=== PATIENT | male | born 1935 | race Caucasian/White ===

== ENCOUNTER 2019-02-05 17:05 | Inpatient (IN) | payer MEDICARE | END 2019-03-08 11:30 | disposition home health service (06) | LOC: MED SURG 17:05 ==

== ENCOUNTER 2020-01-20 22:01 | Inpatient (IN) | payer MEDICARE ==
[2020-01-20] MEDS ORDERED: DUONEB 0.5-3 MG/3 ml Neb IH ONE (22:23)
[2020-01-20] MEDS ORDERED: VENTOLIN COMMON CANISTER IH STA (22:45)
[2020-01-20 22:57] LABS: Absolute Neutrophil Ct (ANC) 11.58 (1.4-6.9); BASOPHIL % 0.3 % (0.0-0.4); Basophil (Absolute #) 0.04 (0-0.4); Eosinophil % 0.4 % (0.00-5.0); Eosinophil (Absolute #) 0.05 (0-0.5); Hematocrit 41.9 % (42-50); Hemoglobin 14.1 gm/dl (12.5-18.0); Lymphocyte (Absolute #) 0.22 (1.0-4.6); Lymphocytes % 1.8 % (24.0-44.0); Mean Corpuscular Hgb Concent. 33.7 g/dl (32-36); Mean Platelet Volume 9.5 fl (7.5-11.0); Monocyte (Absolute #) 0.66 (0.0-1.3); Monocytes % 5.3 % (0.0-12.0); Neutrophil % 92.2 % (36.0-66.0); Platelet Count 305 K/mm3 (150-450); Red Blood Count 4.41 M/mm3 (4.1-5.6); Red Cell Distribution Width 15.9 % (11.5-14.0); White Blood Count 12.6 K/mm3 (4.0-10.5)
[2020-01-20 23:01] LABS: INR 1.05 (0.8-3.0); PROTIME 11.9 SECONDS (8.83-12.87)
[2020-01-20 23:04] LABS: PTT 28.6 SECONDS (24.1-36.1)
[2020-01-20 23:06] LABS: ALBUMIN 4.1 g/dL (3.5-5.0); ANION GAP 10.2 MEQ/L (5-15); BILIRUBIN,TOTAL 0.5 mg/dL (0.2-1.3); Calcium 9.1 mg/dL (8.4-10.2); Creatinine 1 1.42 mg/dL (0.66-1.25); Potassium 4.1 mmol/L (3.5-5.1); Total Protein 7.3 g/dL (6.3-8.2)
[2020-01-20 23:13] LABS: Slide Review 1 YES
[2020-01-20 23:17] LABS: NT PRO BNP 224 pg/mL (0-1800)
[2020-01-20 23:23] LABS: TROPONIN < 0.012 ng/mL (0.000-0.034)
--- NOTE | 2020-01-20 23:32 | ERPHSYRPT ---
- History of Present Illness Time Seen by Provider: 01/20/20 22:21 Source: patient Exam Limitations: no limitations Patient Subjective Stated Complaint: pt states his home health care nurse told him his heart rate was high and his daughter called the ambulance for him. states his breathing is normal for him with accessory muscle use and he does not c/o shortness of breath at this time. Triage Nursing Assessment: pt alert and oriented, answers questions approp. pt arrive per ambulance, transfers to [facility] with assist of 3. pt with accessory muscle use- states is normal for him. exp wheezes noted bilat. skin warm and dry. Physician History: 84 yo wm w 3L O2 dep COPD presents w tachycardia x 7 hours. Pt denies chest pain /increased dyspnea/cough/fever/N/V/D/melena/hemnatochezia. Timing/Duration: other (7hrs) Activities at Onset: rest Severity of Dyspnea-Max: moderate Severity of Dyspnea-Current: moderate Possible Cause: frequent episodes Modifying Factors: Improves With: activity Associated Symptoms: constant, No chest pain/discomfort, No edema, No fever, No lightheadedness, No ankle swelling, No chills, No hemoptysis, No calf pain, No lightheadedness, No leg swelling, No muscle spasms hands, No painful breathing, No productive cough, No sweating, No tightness, No tingling face, No tingling hands Allergies/Adverse Reactions: Tetracyclines Allergy (Verified 01/20/20 22:34) Home Medications: Albuterol 2.5 mg/0.5 ml [PROVENTIL Solution 2.5 MG/0.5 ML] 2.5 mg IH QID 02/05/19 [History] Amlodipine Bes/Olmesartan Med [Artem 5-40 mg Tablet] 1 each PO DAILY 02/05/19 [ History] Cholecalciferol (Vitamin D3) [Vitamin D3] 125 unit PO DAILY 02/05/19 [History] Fluticasone/Salmeterol [Advair 250-50 Diskus] 1 each IH DAILY 02/05/19 [History] Multivitamin W-Minerals/Lutein [Centrum Silver Tablet] 1 each PO DAILY 02/05/19 [History] Primidone 50 MG [Mysoline 50Mg] 250 mg PO BID 02/05/19 [History] Tamsulosin HCl 0.4 mg [Flomax 0.4 MG] 0.4 mg PO DAILY 02/05/19 [History] Atorvastatin Calcium 10 mg PO DAILY 01/20/20 [History] Cetirizine HCl [Zyrtec] 10 mg PO DAILY PRN PRN 01/20/20 [History] Cyanocobalamin (Vitamin B-12) [Vitamin B12] 5,000 mcg PO DAILY 01/20/20 [History ] Donepezil HCl [Aricept] 5 mg PO DAILY 01/20/20 [History] Glycopyrrolate/Formoterol Fum [Bevespi Aerosphere Inhaler] 1 inh IH BID [History] Lipase/Protease/Amylase [Creon Dr 12,000 Units Capsule] 2 cap PO BID 01/20/20 [ History] Magnesium Oxide [Magnesium] 250 mg PO BID 01/20/20 [History] PANTOPRAZOLE 40 mg Tablet [Protonix 40MG Tablet] 40 mg PO QAM 01/20/20 [ History] Prednisone 10 mg [Deltasone 10 mg] 5 mg PO DAILY 01/20/20 [History] Roflumilast [Daliresp] 500 mcg PO DAILY 01/20/20 [History] Travel Risk - International Travel Have you traveled outside of the country in past 3 weeks: No If Yes where:: [facility] - Coronavirus Screening Has patient experienced Coronavirus symptoms: No - Review of Systems Constitutional: No Symptoms Eyes: No Symptoms Ears, Nose, & Throat: No Symptoms Respiratory: Dyspnea on Exertion (LUEVANO) (Chronic) Cardiac: Palpitations Abdominal/Gastrointestinal: No Symptoms Genitourinary Symptoms: No Symptoms Musculoskeletal: No Symptoms Skin: No Symptoms Neurological: No Symptoms Psychological: No Symptoms Endocrine: No Symptoms Hematologic/Lymphatic: No Symptoms Immunological/Allergic: No Symptoms All Other Systems: Reviewed and Negative - Past Medical History Pertinent Past Medical History: Yes Neurological History: No Pertinent History ENT History: Cataracts Cardiac History: Hypertension Respiratory History: COPD Endocrine Medical History: No Pertinent History Musculoskeletal History: Fractures GI Medical History: Diverticulitis, GERD History: No Pertinent History Psycho-Social History: No Pertinent History Male Reproductive Disorders: Prostate Problems Other Medical History: HX FX RIGHT HIP 11/2018 TREATED WITH THR. COPD USING PORTABLE CONCENTRATOR @ 3L PER NC - Past Surgical History Past Surgical History: Yes Neuro Surgical History: No Pertinent History Cardiac: No Pertinent History Respiratory: Other Gastrointestinal: No Pertinent History Genitourinary: No Pertinent History Musculoskeletal: Orthopedic Surgery Male Surgical History: Prostate Surgery Other Surgical History: BOTH HIP FX/REPAIR, SPOT REMOVED FROM LUNG-BIOPSY SHOWED NO CANCER, SHOULDER-BONE SPUR - Social History Smoking Status: Former smoker Exposure to second hand smoke: No Drug Use: none Patient Lives Alone: No Significant Family History: no pertinent family hx - Nursing Vital Signs Nursing Vital Signs: Initial Vital Signs Temperature 98.3 F 01/20/20 22:05 Pulse Rate 126 H 01/20/20 22:05 Respiratory Rate 30 H 01/20/20 22:05 Blood Pressure 159/82 01/20/20 22:05 O2 Sat by Pulse Oximetry 97 01/20/20 22:05 Pain Scale Pain Intensity 5 - Physical Exam General Appearance: no apparent distress Eye Exam: PERRL/EOMI, eyes nml inspection Ears, Nose, Throat Exam: hearing grossly normal, normal ENT inspection, normal pharynx Neck Exam: normal inspection, non-tender, supple Respiratory Exam: accessory muscle use (Pt states that his breathing is no worse than normal), prolonged expirations, wheezing Cardiovascular/Chest Exam: tachycardia, No edema Abdominal/Gastrointestinal Exam: soft, normal bowel sounds, No tenderness Rectal Exam: deferred Extremity Exam: non-tender, normal range of motion, normal inspection, No pedal edema Neurologic Exam: alert, oriented x 3, cooperative, environmental health manager II-XII nml as tested, normal mood/affect, sensation nml, No motor deficits, No sensory deficit Skin Exam: normal color, warm, dry Lymphatic Exam: No adenopathy SpO2 Interpretation: normal SpO2: 100 O2 Delivery: Nasal Cannula (4L) - Course EKG Interpreted by Me: RATE (Sinus tach/Incomplete RBBB/Normal QT-QTc) - Radiology Exams Chest X-ray Interpretation: Interpreted by me (Chronic lung disease wo acute pathology ) Ordered Tests: Active Orders 24 hr Category Date Time Status EKG-ER Only STAT Care 01/20/20 22:22 Active CHEST 1 VIEW (PORTABLE) Stat Exams 01/20/20 22:22 Taken CBC W DIFF Stat Lab 01/20/20 22:53 Completed CMP Stat Lab 01/20/20 22:53 Completed Lactic Acid Stat Lab 01/20/20 22:22 Completed NT PRO BNP Urgent Lab 01/20/20 22:53 Completed PROTIME WITH INR Stat Lab 01/20/20 22:53 Completed PTT Stat Lab 01/20/20 22:53 Completed TROPONIN Q3H Lab 01/20/20 22:53 Completed TROPONIN Q3H Lab 01/21/20 01:30 Ordered TROPONIN Q3H Lab 01/21/20 04:30 Ordered TROPONIN Q3H Lab 01/21/20 07:30 Ordered TROPONIN Q3H Lab 01/21/20 10:30 Ordered Respiratory MDI STAT RT 01/20/20 22:35 Active Respiratory Therapy Assessment DAILY RT 01/20/20 23:03 Active Medication Summary Discontinued Medications Generic Name Dose Route Start Last Admin Trade Name Freq PRN Reason Stop Dose Admin Albuterol Sulfate 2 puff 01/20/20 22:45 01/20/20 22:45 Ventolin Common Canister IH 01/20/20 22:46 2 puff ONCE STA Administration Albuterol/Ipratropium 3 ml 01/20/20 22:23 01/20/20 23:05 Duoneb 0.5-3 Mg/3 Ml Neb IH 01/20/20 22:24 Not Given STAT ONE Lab/Rad Data: Laboratory Result Diagrams 01/20/20 22:53 01/20/20 22:53 Laboratory Results 01/20/20 01/20/20 01/20/20 Range/Units 22:53 22:53 22:53 WBC (4.0-10.5) K/mm3 RBC (4.1-5.6) M/mm3 Hgb (12.5-18.0) gm/dl Hct (42-50) % MCV (78-100) fl MCH (26-32) pg MCHC (32-36) g/dl RDW (11.5-14.0) % Plt Count (150-450) K/mm3 MPV (7.5-11.0) fl Gran % (36.0-66.0) % Eos # (Auto) (0-0.5) Absolute Lymphs (auto) (1.0-4.6) Absolute Monos (auto) (0.0-1.3) Lymphocytes % (24.0-44.0) % Monocytes % (0.0-12.0) % Eosinophils % (0.00-5.0) % Basophils % (0.0-0.4) % Absolute Granulocytes (1.4-6.9) Basophils # (0-0.4) PT 11.9 (8.83-12.87) SECONDS INR 1.05 (0.8-3.0) APTT 28.6 (24.1-36.1) SECONDS Sodium 140 (137-145) mmol/L Potassium 4.1 (3.5-5.1) mmol/L Chloride 107 (98-107) mmol/L Carbon Dioxide 27 (22-30) mmol/L Anion Gap 10.2 (5-15) MEQ/L BUN 36 H (9-20) mg/dL Creatinine 1.42 H (0.66-1.25) mg/dL Estimated GFR 50.6 ML/MIN Glucose 125 H (74-106) mg/dL Lactic Acid (0.4-2.0) Calcium 9.1 (8.4-10.2) mg/dL Total Bilirubin 0.50 (0.2-1.3) mg/dL AST 20 (17-59) U/L ALT 22 (0-50) U/L Alkaline Phosphatase 89 (38-126) U/L Troponin I < 0.012 (0.000-0.034) ng/mL NT-Pro-B Natriuret Pep 224 (0-1800) pg/mL Serum Total Protein 7.3 (6.3-8.2) g/dL Albumin 4.1 (3.5-5.0) g/dL Slides for Path Review 01/20/20 01/20/20 Range/Units 22:53 22:22 WBC 12.6 H (4.0-10.5) K/mm3 RBC 4.41 (4.1-5.6) M/mm3 Hgb 14.1 (12.5-18.0) gm/dl Hct 41.9 L (42-50) % MCV 95.0 (78-100) fl MCH 32.0 (26-32) pg MCHC 33.7 (32-36) g/dl RDW 15.9 H (11.5-14.0) % Plt Count 305 (150-450) K/mm3 MPV 9.5 (7.5-11.0) fl Gran % 92.2 H (36.0-66.0) % Eos # (Auto) 0.05 (0-0.5) Absolute Lymphs (auto) 0.22 L (1.0-4.6) Absolute Monos (auto) 0.66 (0.0-1.3) Lymphocytes % 1.8 L (24.0-44.0) % Monocytes % 5.3 (0.0-12.0) % Eosinophils % 0.4 (0.00-5.0) % Basophils % 0.3 (0.0-0.4) % Absolute Granulocytes 11.58 H (1.4-6.9) Basophils # 0.04 (0-0.4) PT (8.83-12.87) SECONDS INR (0.8-3.0) APTT (24.1-36.1) SECONDS Sodium (137-145) mmol/L Potassium (3.5-5.1) mmol/L Chloride (98-107) mmol/L Carbon Dioxide (22-30) mmol/L Anion Gap (5-15) MEQ/L BUN (9-20) mg/dL Creatinine (0.66-1.25) mg/dL Estimated GFR ML/MIN Glucose (74-106) mg/dL Lactic Acid 0.7 (0.4-2.0) Calcium (8.4-10.2) mg/dL Total Bilirubin (0.2-1.3) mg/dL AST (17-59) U/L ALT (0-50) U/L Alkaline Phosphatase (38-126) U/L Troponin I (0.000-0.034) ng/mL NT-Pro-B Natriuret Pep (0-1800) pg/mL Serum Total Protein (6.3-8.2) g/dL Albumin (3.5-5.0) g/dL Slides for Path Review YES - Progress Progress: improved Air Movement: good Progress Note: 01/20/20 23:42 Pt improved a combivent neb treatment x1 01/20/20 23:51 Pt became nauseated, so called Dr. Barr who wants to obs. Spoke to Dr. Zamora who ok'ed admit. 4mg IV zofran/125mg IV solumedrol before admit Discussed with : Kristen Pope Counseled pt/family regarding: lab results, rad results - Departure Departure Disposition: Observation Clinical Impression: COPD (chronic obstructive pulmonary disease) Condition: Stable Critical Care Time: Yes Critical Care Time(excluding separately billable procedures): Critical 30-74 mins Referrals: WERNER BARR MD [Primary Care Provider] - Instructions: Chronic Obstructive Pulmonary Disease
[2020-01-20] MEDS ORDERED: Zofran 4 MG/2 ML VIAL IV ONE (23:43)
[2020-01-20] MEDS ORDERED: Zofran 4 MG/2 ML VIAL ONE (23:44)
[2020-01-20] MEDS ORDERED: solu-MEDROL 125 MG IV ONE (23:44)
[2020-01-20] MEDS ORDERED: solu-MEDROL 125 MG ONE (23:44)
[2020-01-21] MEDS ORDERED: PROVENTIL 2.5 MG/3 ML NEB IH ONE (00:31)
[2020-01-21] MEDS ORDERED: PROVENTIL 2.5 MG/3 ML NEB IH PRN (00:37)
[2020-01-21] MEDS: solu-MEDROL 125 MG IV SCH ×5 (00:37→23:32)
[2020-01-21 04:34] LABS: Mean Cell Volume 97.3 fl (78-100); Mean Corpuscular Hemoglobin 31.6 pg (26-32); Mean Corpuscular Hgb Concent. 32.5 g/dl (32-36); Mean Platelet Volume 9.6 fl (7.5-11.0); Platelet Count 312 K/mm3 (150-450); Red Blood Count 4.11 M/mm3 (4.1-5.6); Red Cell Distribution Width 15.8 % (11.5-14.0); White Blood Count 13.4 K/mm3 (4.0-10.5)
[2020-01-21 05:13] LABS: ALBUMIN 3.6 g/dL (3.5-5.0); ANION GAP 8.4 MEQ/L (5-15); BILIRUBIN,TOTAL 0.5 mg/dL (0.2-1.3); Calcium 8.6 mg/dL (8.4-10.2); Creatinine 1 1.64 mg/dL (0.66-1.25); Total Protein 6.4 g/dL (6.3-8.2)
[2020-01-21 05:51] LABS: Potassium 5.3 mmol/L (3.5-5.1)
[2020-01-21] MEDS: PROVENTIL 2.5 MG/3 ML NEB IH SCH ×4 (07:06→20:14)
[2020-01-21] MEDS ORDERED: TYLENOL 325 MG PO PRN (08:25)
[2020-01-21] MEDS ORDERED: Phenergan 25 MG INJ IV PRN (08:26)
--- NOTE | 2020-01-21 09:32 | XRAY ---
Indication: Dyspnea. Comparison: February 15, 2019. Portable chest is clear with again COPD, CIPD, and mediastinal calcified nodes. Heart is not enlarged. Bony thorax intact again with mild osteopenia, degenerative changes, and mild scoliosis. Impression: Nonacute chest with chronic features.
[2020-01-21] MEDS ORDERED: NON-FORMULARY ITEM (Cetirizine Hcl [Zyrtec] 10 MG) PO PRN (09:33)
[2020-01-21] MEDS ORDERED: CLARITIN 10 MG PO PRN (09:44)
[2020-01-21] MEDS ORDERED: CHOLECALCIFEROL PO SCH (10:00)
[2020-01-21] MEDS ORDERED: NON-FORMULARY ITEM (Atorvastatin Calcium [Atorvastatin Calcium] 10 MG) PO SCH (10:00)
[2020-01-21] MEDS ORDERED: FORMOTEROL FUM IH SCH (10:00)
[2020-01-21] MEDS ORDERED: AMLODIPINE BES PO SCH (10:00)
[2020-01-21] MEDS ORDERED: Benicar 20 MG PO SCH (10:00)
[2020-01-21] MEDS ORDERED: NON-FORMULARY ITEM (Donepezil Hcl [Aricept] 5 MG) PO SCH (10:00)
[2020-01-21] MEDS ORDERED: CYANOCOBALAMIN 5000 MCG PO SCH (10:00)
[2020-01-21] MEDS ORDERED: MAGNESIUM OXIDE 250 MG PO SCH (10:00)
[2020-01-21] MEDS ORDERED: ADVAIR 250-50 DISKUS 14 DOSE IH SCH (10:00)
[2020-01-21] MEDS ORDERED: OLMESARTAN MED PO SCH (10:00)
[2020-01-21] MEDS ORDERED: GLYCOPYRROLATE IH SCH (10:00)
[2020-01-21] MEDS ORDERED: AMYLASE PO SCH (10:00)
[2020-01-21] MEDS ORDERED: LIPASE PO SCH (10:00)
[2020-01-21] MEDS ORDERED: PROTEASE PO SCH (10:00)
[2020-01-21] MEDS: NORVASC 5 MG PO SCH (11:01)
[2020-01-21] MEDS: VITAMIN D PO SCH (11:01)
[2020-01-21] MEDS: MYSOLINE 50MG PO SCH ×2 (11:02→21:22)
[2020-01-21] MEDS: MAG-OX 400 PO SCH ×2 (11:02→21:21)
[2020-01-21] MEDS: Protonix 40MG Tablet PO SCH (11:02)
[2020-01-21] MEDS: Flomax 0.4 MG PO SCH (11:03)
[2020-01-21] MEDS: Aricept 10 MG PO SCH (11:03)
[2020-01-21] MEDS: PANCRELIPASE DR 5,000 UNIT CAP PO SCH ×2 (11:06→21:24)
[2020-01-21] MEDS: DALIRESP PO SCH (11:07)
[2020-01-21] MEDS: Vitamin B-12 500 MCG PO SCH (11:13)
[2020-01-21] MEDS: ROCEPHIN 1 Gm-D5w 50 ml Bag** 1 G/50 ML IVPB IV SCH (11:46)
--- NOTE | 2020-01-21 12:02 | HP ---
HISTORY OF PRESENT ILLNESS: This is an 84 year-old patient of Dr. Barr who presented to the emergency department last night with increased work of breathing. The patient reports he went to the dentist yesterday and was off his portable oxygen for an hour for that and had increased trouble breathing after that. He denies any chest pain but states his daughter wanted to make sure he had not had a heart attack. He has no history of coronary artery disease. He wears oxygen at home. He reports 3 liters during the day that is "pulsing" and then 4 liters at night. He denies any cough, no fever. He reports a decreased appetite yesterday but better today. He has a history of chronic obstructive pulmonary disease. He reports quitting smoking 23 years ago. REVIEW OF SYSTEMS: No abdominal pain. No constipation. No lower extremity edema. No rashes. No fever. No nausea or vomiting. MEDICATIONS: Please see the home medication reconciliation list which I have reviewed. ALLERGIES: TETRACYCLINES. PAST MEDICAL HISTORY: Chronic obstructive pulmonary disease. History of bilateral hip fractures. Chronic kidney disease per his labs but the patient states he has no known kidney problems. Hypertension. PAST SURGICAL HISTORY: Two hip fractures otherwise noncontributory. SOCIAL HISTORY: He is , lives with his . Quit smoking 23 years ago. He drinks one to two margaritas per week. FAMILY HISTORY: His mother is . His father is of myocardial infarction at 79 years of age. PHYSICAL EXAMINATION: VITAL SIGNS: Temperature current 98.7F, temperature max 99.1F, heart rate 72, respiratory rate 16, blood pressure 119/58, weight 59.4 kg. Oxygen saturation 99% on 4 liters. GENERAL: The patient is a pleasant talkative man lying in bed in no acute distress with nasal cannula in place. CVS: He has a regular rate and rhythm. No murmurs, gallops or rubs. CHEST: Clear to auscultation bilaterally. No crackles or wheezes. ABDOMEN: Soft, nontender, nondistended with normal bowel sounds. EXTREMITIES: No clubbing, cyanosis or edema. SKIN: Warm, dry and intact. LABORATORY DATA AND TESTS: White blood cell count 12.6 on admission, 13.4 today. Potassium 4.1 yesterday and 5.3 today. Creatinine 1.4 yesterday and 1.6 today. He has had 4 negative serial troponins. He had chest x-ray that was read as nonacute chest with chronic features. EKG normal sinus rhythm. ASSESSMENT AND PLAN: 1) CHRONIC OBSTRUCTIVE PULMONARY DISEASE EXACERBATION: He is currently on oxygen. He is receiving Albuterol IV, methylprednisolone. I am also going to start him on an antibiotic. 2) DYSPNEA: He is ruling out for acute myocardial infarction. He denies any chest pain. 3) HYPERKALEMIA: It looks like his potassium sometimes fluctuates up to the high end of normal. He is not on any potassium supplement, will plan to recheck tomorrow. 4) CHRONIC KIDNEY DISEASE STAGE III: This will need to be followed up as an outpatient his primary care doctor. 5) HYPERTENSION: Will continue his home antihypertensive.
[2020-01-21] MEDS: Advair Hfa 115/21 Common canister IH SCH ×2 (14:40→20:15)
[2020-01-21] MEDS: Zocor 10MG PO SCH (21:22)
[2020-01-22 05:26] LABS: Absolute Neutrophil Ct (ANC) 7.49 (1.4-6.9); Basophil (Absolute #) 0 (0-0.4); Eosinophil (Absolute #) 0 (0-0.5); Hematocrit 35.4 % (42-50); Hemoglobin 11.4 gm/dl (12.5-18.0); Lymphocyte (Absolute #) 0.38 (1.0-4.6); Lymphocytes % 4.7 % (24.0-44.0); Mean Cell Volume 97.3 fl (78-100); Mean Corpuscular Hemoglobin 31.3 pg (26-32); Mean Corpuscular Hgb Concent. 32.2 g/dl (32-36); Mean Platelet Volume 9.7 fl (7.5-11.0); Monocyte (Absolute #) 0.29 (0.0-1.3); Monocytes % 3.6 % (0.0-12.0); Neutrophil % 91.7 % (36.0-66.0); Platelet Count 303 K/mm3 (150-450); Red Blood Count 3.64 M/mm3 (4.1-5.6); Red Cell Distribution Width 15.8 % (11.5-14.0); White Blood Count 8.2 K/mm3 (4.0-10.5)
[2020-01-22 05:47] LABS: ANION GAP 10.2 MEQ/L (5-15); Calcium 8.2 mg/dL (8.4-10.2); Creatinine 1 1.81 mg/dL (0.66-1.25); Potassium 5.4 mmol/L (3.5-5.1)
[2020-01-22] MEDS: solu-MEDROL 125 MG IV SCH ×3 (05:56→21:13)
[2020-01-22 06:23] LABS: Slide Review 1 YES
[2020-01-22] MEDS ORDERED: solu-MEDROL 125 MG IV SCH (06:30)
[2020-01-22] MEDS: PROVENTIL 2.5 MG/3 ML NEB IH SCH ×4 (06:56→19:43)
[2020-01-22] MEDS: Advair Hfa 115/21 Common canister IH SCH ×2 (06:56→19:43)
[2020-01-22 09:20] LABS: Appearance CLEAR (CLEAR); Bilirubin NEGATIVE (NEGATIVE); Blood NEGATIVE Ery/ul (0-5); Glucose NEGATIVE (NEGATIVE); Ketones NEGATIVE (NEGATIVE); Leukocyte Esterase NEGATIVE (NEGATIVE); Mucus SLIGHT /HPF (NEGATIVE); Nitrite NEGATIVE (NEGATIVE); Protein,Urine Dip NEGATIVE (Negative); Urobilinogen NORMAL mg/dL (0-1)
[2020-01-22] MEDS: DALIRESP PO SCH (09:29)
[2020-01-22] MEDS: PANCRELIPASE DR 5,000 UNIT CAP PO SCH ×2 (09:29→21:09)
[2020-01-22] MEDS: MAG-OX 400 PO SCH ×2 (09:29→21:08)
[2020-01-22] MEDS: VITAMIN D PO SCH (09:30)
[2020-01-22] MEDS: Aricept 10 MG PO SCH (09:30)
[2020-01-22] MEDS: Flomax 0.4 MG PO SCH (09:31)
[2020-01-22] MEDS: Protonix 40MG Tablet PO SCH (09:31)
[2020-01-22] MEDS: NORVASC 5 MG PO SCH (09:31)
[2020-01-22] MEDS: MYSOLINE 50MG PO SCH ×2 (09:32→21:07)
[2020-01-22] MEDS: Vitamin B-12 500 MCG PO SCH (09:33)
[2020-01-22] MEDS: ROCEPHIN 1 Gm-D5w 50 ml Bag** 1 G/50 ML IVPB IV SCH (09:34)
--- NOTE | 2020-01-22 10:37 | XRAY ---
Indication: Acute kidney disease. Two-dimensional renal sonogram performed. Comparison: None Both kidneys normal in reniform shape with normal color perfusion. Right kidney measures 9.6 x 4.5 x 4.2 cm and the left measures 8.0 x 3.5 x 3.4 cm. 2.1 cm right upper pole cortical cyst. No other solid/cystic renal mass origin nephrosis. Cortical medullary differentiation preserved without cortical thinning. Images of the mildly distended urinary bladder grossly unremarkable. Ureteral jets not seen within the allotted exam time. Incidental prominent prostate gland measuring 2.6 x 4.5 cm and a 1.5 cm gallstone. Impression: 1. Right renal cyst in a otherwise negative renal sonogram. 2. Incidental prominent prostate gland and a gallstone
--- NOTE | 2020-01-22 11:21 | PCM.NOTE ---
Date and Time: 01/22/20 1118 Subjective Assessment: He reports his breathing is better. He is unaware that he has kidney problems. He would like to go home as soon as possible. - Review of Systems Constitutional: No Symptoms Respiratory: Short Of Breath Cardiac: No Symptoms Abdominal/Gastrointestinal: No Symptoms Genitourinary Symptoms: No Symptoms Musculoskeletal: No Symptoms Objective Exam General Appearance: no apparent distress Neurologic Exam: alert, cooperative Skin Exam: normal color, warm, dry, No rash Respiratory Exam: normal breath sounds, other (distant breath sounds bilat), No crackles/rales, No rhonchi, No wheezing Cardiovascular Exam: regular rate/rhythm, No murmur, No friction rub, No gallop Gastrointestinal/Abdomen Exam: soft, normal bowel sounds, No tenderness, No distention, No mass OBJECTIVE DATA Vital Signs: Vital Signs - 24 hr Temp Pulse Resp BP Pulse Ox 01/22/20 08:00 97.7 F 57 L 16 112/54 98 01/22/20 06:57 57 L 16 98 01/22/20 04:45 97.8 F 64 17 111/55 97 01/22/20 00:31 98.1 F 70 14 113/56 96 01/21/20 21:00 98.3 F 74 18 119/59 96 01/21/20 20:19 67 16 96 01/21/20 20:00 98.3 F 74 18 119/59 96 01/21/20 16:00 98.2 F 76 16 116/53 97 01/21/20 15:00 81 17 96 01/21/20 12:00 98.3 F 81 17 112/55 96 Pain Assessment - Last Documented Pain Intensity 0 Pain Scale Used 0-10 Pain Scale Intake and Output: Intake & Output 01/20/20 01/21/20 01/22/20 01/23/20 06:59 06:59 06:59 06:59 Intake Total 1575 Output Total 100 450 Balance -100 1125 Weight 59.4 kg 59.5 kg Lab Results: Lab Results-Last 24 Hours 01/21/20 01/22/20 01/22/20 Range/Units 10:41 05:05 05:05 WBC 8.2 (4.0-10.5) K/mm3 RBC 3.64 L (4.1-5.6) M/mm3 Hgb 11.4 L (12.5-18.0) gm/dl Hct 35.4 L (42-50) % MCV 97.3 (78-100) fl MCH 31.3 (26-32) pg MCHC 32.2 (32-36) g/dl RDW 15.8 H (11.5-14.0) % Plt Count 303 (150-450) K/mm3 MPV 9.7 (7.5-11.0) fl Gran % 91.7 H (36.0-66.0) % Eos # (Auto) 0 (0-0.5) Absolute Lymphs (auto) 0.38 L (1.0-4.6) Absolute Monos (auto) 0.29 (0.0-1.3) Lymphocytes % 4.7 L (24.0-44.0) % Monocytes % 3.6 (0.0-12.0) % Eosinophils % 0.0 (0.00-5.0) % Basophils % 0.0 (0.0-0.4) % Absolute Granulocytes 7.49 H (1.4-6.9) Basophils # 0 (0-0.4) Sodium 136 L (137-145) mmol/L Potassium 5.4 H (3.5-5.1) mmol/L Chloride 107 (98-107) mmol/L Carbon Dioxide 25 (22-30) mmol/L Anion Gap 10.2 (5-15) MEQ/L BUN 59 H (9-20) mg/dL Creatinine 1.81 H (0.66-1.25) mg/dL Estimated GFR 38.2 ML/MIN Glucose 150 H (74-106) mg/dL Calcium 8.2 L (8.4-10.2) mg/dL Troponin I < 0.012 (0.000-0.034) ng/mL Urine Color (YELLOW) Urine Appearance (CLEAR) Urine pH (5-6) Ur Specific [place] (1.005-1.025) Urine Protein (Negative) Urine Ketones (NEGATIVE) Urine Blood (0-5) [place]/ul Urine Nitrite (NEGATIVE) Urine Bilirubin (NEGATIVE) Urine Urobilinogen (0-1) mg/dL Ur Leukocyte Esterase (NEGATIVE) Urine WBC (Auto) (0-5) /HPF Urine RBC (Auto) (0-2) /HPF U Epithel Cells (Auto) (FEW) /HPF Urine Bacteria (Auto) (NEGATIVE) /HPF Urine Mucus (Auto) (NEGATIVE) /HPF Urine Culture Reflexed (NO) Urine Glucose (NEGATIVE) mg/dL Slides for Path Review YES 01/22/20 Range/Units 06:00 WBC (4.0-10.5) K/mm3 RBC (4.1-5.6) M/mm3 Hgb (12.5-18.0) gm/dl Hct (42-50) % MCV (78-100) fl MCH (26-32) pg MCHC (32-36) g/dl RDW (11.5-14.0) % Plt Count (150-450) K/mm3 MPV (7.5-11.0) fl Gran % (36.0-66.0) % Eos # (Auto) (0-0.5) Absolute Lymphs (auto) (1.0-4.6) Absolute Monos (auto) (0.0-1.3) Lymphocytes % (24.0-44.0) % Monocytes % (0.0-12.0) % Eosinophils % (0.00-5.0) % Basophils % (0.0-0.4) % Absolute Granulocytes (1.4-6.9) Basophils # (0-0.4) Sodium (137-145) mmol/L Potassium (3.5-5.1) mmol/L Chloride (98-107) mmol/L Carbon Dioxide (22-30) mmol/L Anion Gap (5-15) MEQ/L BUN (9-20) mg/dL Creatinine (0.66-1.25) mg/dL Estimated GFR ML/MIN Glucose (74-106) mg/dL Calcium (8.4-10.2) mg/dL Troponin I (0.000-0.034) ng/mL Urine Color YELLOW (YELLOW) Urine Appearance CLEAR (CLEAR) Urine pH 5.0 (5-6) Ur Specific [place] 1.010 (1.005-1.025) Urine Protein NEGATIVE (Negative) Urine Ketones NEGATIVE (NEGATIVE) Urine Blood NEGATIVE (0-5) [place]/ul Urine Nitrite NEGATIVE (NEGATIVE) Urine Bilirubin NEGATIVE (NEGATIVE) Urine Urobilinogen NORMAL (0-1) mg/dL Ur Leukocyte Esterase NEGATIVE (NEGATIVE) Urine WBC (Auto) NONE (0-5) /HPF Urine RBC (Auto) NONE (0-2) /HPF U Epithel Cells (Auto) NONE (FEW) /HPF Urine Bacteria (Auto) NONE (NEGATIVE) /HPF Urine Mucus (Auto) SLIGHT (NEGATIVE) /HPF Urine Culture Reflexed NO (NO) Urine Glucose NEGATIVE (NEGATIVE) mg/dL Slides for Path Review Radiology Exams: Radiology Procedures Category Date Time Status CHEST 1 VIEW (PORTABLE) Stat Exams 01/20/20 22:22 Completed KIDNEY [US] Routine Exams 01/22/20 10:15 Completed Assessment/Plan (1) COPD (chronic obstructive pulmonary disease) Current Visit: Yes Status: Chronic Assessment & Plan: Dose of IV steroids decreased today; continuing ceftriaxone. (2) Hyperkalemia Current Visit: Yes Status: Acute Assessment & Plan: I stopped his ARB today and nephrology consulted. Code(s): E87.5 - HYPERKALEMIA (3) CKD stage G3b/A1, GFR 30-44 and albumin creatinine ratio <30 mg/g Current Visit: Yes Status: Acute Assessment & Plan: Nephrology consulted; renal ultrasound and UA ordered. Code(s): N18.3 - CHRONIC KIDNEY DISEASE, STAGE 3 (MODERATE) (4) Hypertension Current Visit: Yes Status: Acute Assessment & Plan: currently well controlled. Code(s): I10 - ESSENTIAL (PRIMARY) HYPERTENSION
[2020-01-22] MEDS: THERAGRAN MULTIVITAMIN PO SCH (13:09)
[2020-01-22] MEDS: Zocor 10MG PO SCH (21:08)
[2020-01-23 05:19] LABS: Absolute Neutrophil Ct (ANC) 7.85 (1.4-6.9); BASOPHIL % 0.1 % (0.0-0.4); Basophil (Absolute #) 0.01 (0-0.4); Eosinophil % 0.1 % (0.00-5.0); Eosinophil (Absolute #) 0.01 (0-0.5); Hematocrit 38.6 % (42-50); Hemoglobin 12.5 gm/dl (12.5-18.0); Lymphocyte (Absolute #) 0.66 (1.0-4.6); Lymphocytes % 7.1 % (24.0-44.0); Mean Cell Volume 97.5 fl (78-100); Mean Corpuscular Hemoglobin 31.6 pg (26-32); Mean Corpuscular Hgb Concent. 32.4 g/dl (32-36); Mean Platelet Volume 10.1 fl (7.5-11.0); Monocyte (Absolute #) 0.73 (0.0-1.3); Monocytes % 7.9 % (0.0-12.0); Neutrophil % 84.8 % (36.0-66.0); Platelet Count 330 K/mm3 (150-450); Red Blood Count 3.96 M/mm3 (4.1-5.6); White Blood Count 9.3 K/mm3 (4.0-10.5)
[2020-01-23 05:51] LABS: ANION GAP 9.5 MEQ/L (5-15); Calcium 8.3 mg/dL (8.4-10.2); Creatinine 1 1.71 mg/dL (0.66-1.25); Potassium 5.1 mmol/L (3.5-5.1)
[2020-01-23] MEDS: solu-MEDROL 125 MG IV SCH ×2 (06:23→06:46)
[2020-01-23] MEDS: Advair Hfa 115/21 Common canister IH SCH ×2 (07:14→20:39)
[2020-01-23] MEDS: PROVENTIL 2.5 MG/3 ML NEB IH SCH ×4 (07:14→20:39)
[2020-01-23] MEDS: Vitamin B-12 500 MCG PO SCH (08:48)
[2020-01-23] MEDS: ROCEPHIN 1 Gm-D5w 50 ml Bag** 1 G/50 ML IVPB IV SCH (08:48)
[2020-01-23] MEDS: MAG-OX 400 PO SCH ×2 (08:49→20:13)
[2020-01-23] MEDS: MYSOLINE 50MG PO SCH ×2 (08:49→20:13)
[2020-01-23] MEDS: DELTASONE 20 MG PO SCH (08:49)
[2020-01-23] MEDS: NORVASC 5 MG PO SCH (08:49)
[2020-01-23] MEDS: VITAMIN D PO SCH (08:50)
[2020-01-23] MEDS: Aricept 10 MG PO SCH (08:50)
[2020-01-23] MEDS: Protonix 40MG Tablet PO SCH (08:51)
[2020-01-23] MEDS: Flomax 0.4 MG PO SCH ×2 (08:51→21:48)
[2020-01-23] MEDS: THERAGRAN MULTIVITAMIN PO SCH (08:51)
[2020-01-23] MEDS: DALIRESP PO SCH (08:59)
[2020-01-23] MEDS: PANCRELIPASE DR 5,000 UNIT CAP PO SCH ×2 (09:00→20:14)
[2020-01-23] MEDS ORDERED: NON-FORMULARY ITEM (Multivitamin W-Minerals/Lutein [Centrum Silver Tablet] 1 EACH) PO SCH (10:00)
[2020-01-23] MEDS ORDERED: Sodium Chloride 0.9% 10 ML FLUSH Syringe IV PRN (10:30)
[2020-01-23] MEDS ORDERED: Lasix 20 MG/2 ML IV ONE (10:30)
[2020-01-23 11:28] LABS: Appearance CLEAR (CLEAR); Bilirubin NEGATIVE (NEGATIVE); Blood NEGATIVE Ery/ul (0-5); Glucose NEGATIVE (NEGATIVE); Ketones NEGATIVE (NEGATIVE); Leukocyte Esterase NEGATIVE (NEGATIVE); Mucus SLIGHT /HPF (NEGATIVE); Nitrite NEGATIVE (NEGATIVE); Protein,Urine Dip NEGATIVE (Negative); Specific Gravity 1.016 (1.005-1.025); Urobilinogen NEGATIVE mg/dL (0-1)
--- NOTE | 2020-01-23 11:34 | XRAY ---
Indication: Post-for residual. Two-dimensional urinary bladder sonogram performed. Comparison: None Urinary bladder normally distended with prevoid volume 103 cc. No focal bladder mass or wall thickening. Incidental bilateral bladder diverticulum, largest on the left measuring 2.5 cm. Postvoid volume is 66 cc. Impression: Urinary bladder diverticuli and small residual post void urine. Remaining bladder sonogram is negative.
--- NOTE | 2020-01-23 12:28 | CONS ---
CONSULT DATE: 01/23/2020 I thank you for your kind referral. HISTORY: Vamsi Morales is a very pleasant 84 year-old gentleman who has underlying multiple medical problems including chronic obstructive pulmonary disease, chronic respiratory failure, possible chronic kidney disease and hypertension. The patient denies any history of congestive heart failure. The patient went to the dentist and was taken off of portable oxygen for some time. Subsequently he had trouble breathing. He did not have any chest pain. The patient uses 3 liters of oxygen during the day and 4 liters at night. He did not have any cough, phlegm or fever. The patient denies any vomiting or diarrhea. His medication list did not show the presence of any nonsteroidals. The patient was not hypotensive. Creatinine in the hospital had been around 1.7 to 1.8 and as a result renal consultation was called. REVIEW OF SYSTEMS: No vomiting or diarrhea. Chest pain is better. Denies any leg swelling. Had some difficulty in voiding, had thin stream. He has urgency, frequency and hesitancy. No recent weight loss. No chronic use of nonsteroidals. The patient has history of pancreatitis and is on chronic proton pump inhibitor. No fall, trauma, focal weaknesses. All systems were reviewed and pertinent mentioned here and in history of present illness and the rest were negative. PAST MEDICAL HISTORY: Chronic obstructive pulmonary disease. Chronic respiratory failure. Hypertension. Vitamin D deficiency. Possible chronic kidney disease. History of questionable prostate cancer versus benign prostatic hypertrophy. Chronic steroid use. Dementia. History of possible pancreatitis. Osteoarthritis. PAST SURGICAL HISTORY: Fracture of the right hip treated with total hip replacement. Also had issues with left hip with surgery. History of lung biopsy. Shoulder bone spur repair. MEDICATIONS: All medications were reviewed, details of doses were noted. ALLERGIES: TETRACYCLINES. SOCIAL HISTORY: Former smoker. No alcohol abuse. No drug abuse. FAMILY HISTORY: No history of renal problems in the family. PHYSICAL EXAMINATION: Reveals a gentleman who was upright in chair and has baseline shortness of breath. Blood pressure was 134/61, pulse rate 68/minute, respiratory rate 18/minute, afebrile. HEENT: Normocephalic, atraumatic, slightly pale conjunctivae. NECK: Supple. JVD is present-engorged external neck veins. CHEST: Decreased basilar breath sounds, poor air entry. No crackles. CVS: S1, S2 normal. No rub or gallop. ABDOMEN: Soft, nontender. No organomegaly. EXTREMITIES: No cyanosis, clubbing. Trace edema bilaterally. SKIN: No skin rash. Skin turgor normal. MUSCULOSKELETAL: No acute joint swelling, redness noted. NEUROLOGIC: Nonfocal exam. Alert, awake, oriented x3. LAB DATA AND TESTS: Labs were reviewed and pertinent labs: Hemoglobin was 12.5, white count was 9.3. Creatinine was 1.71, BUN 64, potassium 5.1, sodium 135. Benefits, alternatives, risks of dye exposure were discussed. ASSESSMENT: 1) ACUTE KIDNEY INJURY ON CHRONIC KIDNEY DISEASE STAGE III VERSUS ALL CHRONIC KIDNEY DISEASE: If acute kidney injury is present etiology would be most likely ongoing urine retention plus component of cardiorenal/right sided heart failure plus recent hypoxemia. This may be all underlying chronic kidney disease as small fluctuations in creatinine are not uncommon depending on volume status. Etiology of chronic kidney disease would be related to history of hypertension, history of prior smoking, age-related nephrosclerosis, chronic use of proton pump inhibitor and chronic urine retention. We will investigate by doing baseline kidney disease work up including urine study, ultrasonogram of kidneys and urine protein quantification. We will also check NT ProBNP and PSA level. Baseline ultrasound of kidneys as well as post-void residual bladder scan. We will give a trial of a small dose of diuretics along with increase in Flomax. Continue to monitor the trend of creatinine. Would recommend to avoid proton pump inhibitor. 2) SHORTNESS OF BREATH COMBINATION OF CHRONIC OBSTRUCTIVE PULMONARY DISEASE: Rule out any underlying congestive heart failure. We will give a trial of Lasix. Will check NT ProBNP. 3) HISTORY OF POSSIBLE PROSTATE CANCER: Rule out chronic urine retention, get PVR, increase Flomax. 4) HYPERTENSION: Okay to continue amlodipine. 5) CHRONIC RESPIRATORY FAILURE: Continue home oxygen plus Albuterol. All questions were answered, discussed with .
[2020-01-23] MEDS: Sodium Chloride 0.9% 10 ML FLUSH Syringe IV SCH ×2 (13:01→20:15)
--- NOTE | 2020-01-23 15:35 | PCM.NOTE ---
Date and Time: 01/23/20 1532 Subjective Assessment: Dr. Clemente was able to see him this AM. I appreciate his input. Patient states he is feeling well. He states he is urinating more with the IV lasix. He reports his breathing continues to improve. - Review of Systems Constitutional: No Symptoms Respiratory: No Symptoms Cardiac: No Symptoms Abdominal/Gastrointestinal: No Symptoms Genitourinary Symptoms: No Symptoms OBJECTIVE DATA Vital Signs: Vital Signs - 24 hr Temp Pulse Resp BP Pulse Ox 01/23/20 14:32 74 16 97 01/23/20 12:00 97.8 F 84 17 145/63 97 01/23/20 10:49 80 16 96 01/23/20 08:00 97.8 F 65 17 152/68 98 01/23/20 07:20 62 18 98 01/23/20 04:09 97.7 F 68 18 134/61 97 01/23/20 00:11 98.1 F 64 22 129/58 97 01/22/20 20:00 98.1 F 65 20 132/62 98 01/22/20 19:43 64 18 98 01/22/20 16:00 98.5 F 70 18 118/58 97 Oxygen-Last 24 hours Oxygen Flowrate (L/min)-RT 3 Pain Assessment - Last Documented Pain Intensity 0 Pain Scale Used FLACC Intake and Output: Intake & Output 01/21/20 01/22/20 01/23/20 01/24/20 06:59 06:59 06:59 06:59 Intake Total 1575 1700 720 Output Total 496 770 1607 975 Balance -100 1125 450 -255 Weight 59.4 kg 59.5 kg 61 kg Lab Results: Lab Results-Last 24 Hours 01/23/20 01/23/20 01/23/20 Range/Units 05:15 05:15 06:00 WBC 9.3 (4.0-10.5) K/mm3 RBC 3.96 L (4.1-5.6) M/mm3 Hgb 12.5 (12.5-18.0) gm/dl Hct 38.6 L (42-50) % MCV 97.5 (78-100) fl MCH 31.6 (26-32) pg MCHC 32.4 (32-36) g/dl RDW 16.0 H (11.5-14.0) % Plt Count 330 (150-450) K/mm3 MPV 10.1 (7.5-11.0) fl Gran % 84.8 H (36.0-66.0) % Eos # (Auto) 0.01 (0-0.5) Absolute Lymphs (auto) 0.66 L (1.0-4.6) Absolute Monos (auto) 0.73 (0.0-1.3) Lymphocytes % 7.1 L (24.0-44.0) % Monocytes % 7.9 (0.0-12.0) % Eosinophils % 0.1 (0.00-5.0) % Basophils % 0.1 (0.0-0.4) % Absolute Granulocytes 7.85 H (1.4-6.9) Basophils # 0.01 (0-0.4) Sodium 135 L (137-145) mmol/L Potassium 5.1 (3.5-5.1) mmol/L Chloride 103 (98-107) mmol/L Carbon Dioxide 28 (22-30) mmol/L Anion Gap 9.5 (5-15) MEQ/L BUN 64 H (9-20) mg/dL Creatinine 1.71 H (0.66-1.25) mg/dL Estimated GFR 40.8 ML/MIN Glucose 81 (74-106) mg/dL Calcium 8.3 L (8.4-10.2) mg/dL NT-Pro-B Natriuret Pep 1080 (0-1800) pg/mL Urine Color (YELLOW) Urine Appearance (CLEAR) Urine pH (5-6) Ur Specific [place] (1.005-1.025) Urine Protein (Negative) Urine Ketones (NEGATIVE) Urine Blood (0-5) Gumaro/ul Urine Nitrite (NEGATIVE) Urine Bilirubin (NEGATIVE) Urine Urobilinogen (0-1) mg/dL Ur Leukocyte Esterase (NEGATIVE) Urine WBC (Auto) (0-5) /HPF Urine RBC (Auto) (0-2) /HPF U Epithel Cells (Auto) (FEW) /HPF Urine Bacteria (Auto) (NEGATIVE) /HPF Urine Mucus (Auto) (NEGATIVE) /HPF Urine Culture Reflexed (NO) Ur Random Creatinine MG/DL U Random Total Protein (0-12) mg/dL Urine Sodium (30-90) mmol/L Urine Glucose (NEGATIVE) mg/dL 01/23/20 01/23/20 01/23/20 Range/Units 10:00 10:00 10:00 WBC (4.0-10.5) K/mm3 RBC (4.1-5.6) M/mm3 Hgb (12.5-18.0) gm/dl Hct (42-50) % MCV (78-100) fl MCH (26-32) pg MCHC (32-36) g/dl RDW (11.5-14.0) % Plt Count (150-450) K/mm3 MPV (7.5-11.0) fl Gran % (36.0-66.0) % Eos # (Auto) (0-0.5) Absolute Lymphs (auto) (1.0-4.6) Absolute Monos (auto) (0.0-1.3) Lymphocytes % (24.0-44.0) % Monocytes % (0.0-12.0) % Eosinophils % (0.00-5.0) % Basophils % (0.0-0.4) % Absolute Granulocytes (1.4-6.9) Basophils # (0-0.4) Sodium (137-145) mmol/L Potassium (3.5-5.1) mmol/L Chloride (98-107) mmol/L Carbon Dioxide (22-30) mmol/L Anion Gap (5-15) MEQ/L BUN (9-20) mg/dL Creatinine (0.66-1.25) mg/dL Estimated GFR ML/MIN Glucose (74-106) mg/dL Calcium (8.4-10.2) mg/dL NT-Pro-B Natriuret Pep (0-1800) pg/mL Urine Color (YELLOW) Urine Appearance (CLEAR) Urine pH (5-6) Ur Specific [place] (1.005-1.025) Urine Protein (Negative) Urine Ketones (NEGATIVE) Urine Blood (0-5) Gumaro/ul Urine Nitrite (NEGATIVE) Urine Bilirubin (NEGATIVE) Urine Urobilinogen (0-1) mg/dL Ur Leukocyte Esterase (NEGATIVE) Urine WBC (Auto) (0-5) /HPF Urine RBC (Auto) (0-2) /HPF U Epithel Cells (Auto) (FEW) /HPF Urine Bacteria (Auto) (NEGATIVE) /HPF Urine Mucus (Auto) (NEGATIVE) /HPF Urine Culture Reflexed (NO) Ur Random Creatinine 64.4 MG/DL U Random Total Protein 12 (0-12) mg/dL Urine Sodium 73 (30-90) mmol/L Urine Glucose (NEGATIVE) mg/dL 01/23/20 Range/Units 11:12 WBC (4.0-10.5) K/mm3 RBC (4.1-5.6) M/mm3 Hgb (12.5-18.0) gm/dl Hct (42-50) % MCV (78-100) fl MCH (26-32) pg MCHC (32-36) g/dl RDW (11.5-14.0) % Plt Count (150-450) K/mm3 MPV (7.5-11.0) fl Gran % (36.0-66.0) % Eos # (Auto) (0-0.5) Absolute Lymphs (auto) (1.0-4.6) Absolute Monos (auto) (0.0-1.3) Lymphocytes % (24.0-44.0) % Monocytes % (0.0-12.0) % Eosinophils % (0.00-5.0) % Basophils % (0.0-0.4) % Absolute Granulocytes (1.4-6.9) Basophils # (0-0.4) Sodium (137-145) mmol/L Potassium (3.5-5.1) mmol/L Chloride (98-107) mmol/L Carbon Dioxide (22-30) mmol/L Anion Gap (5-15) MEQ/L BUN (9-20) mg/dL Creatinine (0.66-1.25) mg/dL Estimated GFR ML/MIN Glucose (74-106) mg/dL Calcium (8.4-10.2) mg/dL NT-Pro-B Natriuret Pep (0-1800) pg/mL Urine Color YELLOW (YELLOW) Urine Appearance CLEAR (CLEAR) Urine pH 5.0 (5-6) Ur Specific [place] 1.016 (1.005-1.025) Urine Protein NEGATIVE (Negative) Urine Ketones NEGATIVE (NEGATIVE) Urine Blood NEGATIVE (0-5) Gum[place]/ul Urine Nitrite NEGATIVE (NEGATIVE) Urine Bilirubin NEGATIVE (NEGATIVE) Urine Urobilinogen NEGATIVE (0-1) mg/dL Ur Leukocyte Esterase NEGATIVE (NEGATIVE) Urine WBC (Auto) NONE (0-5) /HPF Urine RBC (Auto) NONE (0-2) /HPF U Epithel Cells (Auto) NONE (FEW) /HPF Urine Bacteria (Auto) NONE (NEGATIVE) /HPF Urine Mucus (Auto) SLIGHT (NEGATIVE) /HPF Urine Culture Reflexed NO (NO) Ur Random Creatinine MG/DL U Random Total Protein (0-12) mg/dL Urine Sodium (30-90) mmol/L Urine Glucose NEGATIVE (NEGATIVE) mg/dL Radiology Exams: Radiology Procedures Category Date Time Status BLADDER [US] Routine Exams 01/23/20 09:55 Completed KIDNEY [US] Routine Exams 01/22/20 10:15 Completed Multi-Disciplinary Progress Notes: Multi-Disciplinary Progress Notes 01/23/20 11:47 Case Management Note by Yue Cali NO CHANGE IN DC PLANS AT THIS TIME Initialized on 01/23/20 11:47 - END OF NOTE Assessment/Plan (1) COPD (chronic obstructive pulmonary disease) Current Visit: Yes Status: Chronic Assessment & Plan: Improving with current treatment. Continue steroids, albuterol, oxygen. (2) Hyperkalemia Current Visit: Yes Status: Acute Assessment & Plan: Dr. Clemente has been consulted and is following. Code(s): E87.5 - HYPERKALEMIA (3) CKD stage G3b/A1, GFR 30-44 and albumin creatinine ratio <30 mg/g Current Visit: Yes Status: Acute Assessment & Plan: Dr. Clemente has been consulted and is following. Code(s): N18.3 - CHRONIC KIDNEY DISEASE, STAGE 3 (MODERATE) (4) Hypertension Current Visit: Yes Status: Acute Assessment & Plan: I stopped his ARB yesterday due to hyperkalemia. BP is trending up a little bit toda. Code(s): I10 - ESSENTIAL (PRIMARY) HYPERTENSION
[2020-01-23] MEDS ORDERED: OCEAN Nasal Spray NS PRN (17:08)
[2020-01-23] MEDS: Zocor 10MG PO SCH (20:14)
[2020-01-24 06:04] LABS: Absolute Neutrophil Ct (ANC) 5.69 (1.4-6.9); BASOPHIL % 0.1 % (0.0-0.4); Basophil (Absolute #) 0.01 (0-0.4); Eosinophil % 0.3 % (0.00-5.0); Eosinophil (Absolute #) 0.02 (0-0.5); Hematocrit 39.8 % (42-50); Hemoglobin 13.2 gm/dl (12.5-18.0); Lymphocytes % 14.2 % (24.0-44.0); Mean Cell Volume 96.1 fl (78-100); Mean Corpuscular Hemoglobin 31.9 pg (26-32); Mean Corpuscular Hgb Concent. 33.2 g/dl (32-36); Mean Platelet Volume 9.9 fl (7.5-11.0); Monocyte (Absolute #) 0.95 (0.0-1.3); Monocytes % 12.2 % (0.0-12.0); Neutrophil % 73.2 % (36.0-66.0); Platelet Count 338 K/mm3 (150-450); Red Blood Count 4.14 M/mm3 (4.1-5.6); Red Cell Distribution Width 16.1 % (11.5-14.0); White Blood Count 7.8 K/mm3 (4.0-10.5)
[2020-01-24 06:17] LABS: ALBUMIN 3.6 g/dL (3.5-5.0); ANION GAP 11.3 MEQ/L (5-15); BILIRUBIN,TOTAL 0.3 mg/dL (0.2-1.3); Calcium 8.3 mg/dL (8.4-10.2); Creatinine 1 1.56 mg/dL (0.66-1.25); Potassium 4.5 mmol/L (3.5-5.1); Total Protein 6.6 g/dL (6.3-8.2)
[2020-01-24] MEDS: Sodium Chloride 0.9% 10 ML FLUSH Syringe IV SCH ×2 (06:36→14:42)
[2020-01-24] MEDS: PROVENTIL 2.5 MG/3 ML NEB IH SCH ×3 (07:22→15:25)
[2020-01-24] MEDS: Advair Hfa 115/21 Common canister IH SCH (07:22)
[2020-01-24] MEDS ORDERED: LASIX 20 MG PO SCH (10:00)
[2020-01-24] MEDS: ROCEPHIN 1 Gm-D5w 50 ml Bag** 1 G/50 ML IVPB IV SCH (10:45)
[2020-01-24] MEDS: DALIRESP PO SCH (10:49)
[2020-01-24] MEDS: DELTASONE 20 MG PO SCH (10:49)
[2020-01-24] MEDS: Aricept 10 MG PO SCH (10:49)
[2020-01-24] MEDS: Flomax 0.4 MG PO SCH (10:50)
[2020-01-24] MEDS: MAG-OX 400 PO SCH (10:50)
[2020-01-24] MEDS: MYSOLINE 50MG PO SCH (10:51)
[2020-01-24] MEDS: NORVASC 5 MG PO SCH (10:52)
[2020-01-24] MEDS: PANCRELIPASE DR 5,000 UNIT CAP PO SCH (10:52)
[2020-01-24] MEDS: Vitamin B-12 500 MCG PO SCH (10:52)
[2020-01-24] MEDS: THERAGRAN MULTIVITAMIN PO SCH (10:52)
[2020-01-24] MEDS: VITAMIN D PO SCH (10:52)
[2020-01-24] MEDS: Protonix 40MG Tablet PO SCH (10:52)
[2020-01-24 12:21] LABS: Prostate Specific Antigen 0.69 ng/mL (<=7.20)
--- NOTE | 2020-01-24 15:27 | PCM.DCORD ---
- Discharge Discharge Date: 01/24/20 Disposition: Home, Self-Care Condition: Good Prescriptions: New Prednisone 20 mg [Deltasone 20 mg] 20 mg PO UD #9 tablet Furosemide 20 mg [Lasix 20 mg] 20 mg PO QAM #30 tablet Amlodipine Besylate 5 mg [Norvasc 5 mg] 5 mg PO DAILY #30 tablet Cefdinir [Omnicef] 300 mg PO BID #6 capsule Continue Primidone 50 MG [Mysoline 50Mg] 250 mg PO BID Multivitamin W-Minerals/Lutein [Centrum Silver Tablet] 1 each PO DAILY Fluticasone/Salmeterol [Advair 250-50 Diskus] 1 each IH DAILY Cholecalciferol (Vitamin D3) [Vitamin D3] 125 unit PO DAILY Albuterol 2.5 mg/0.5 ml [PROVENTIL Solution 2.5 MG/0.5 ML] 2.5 mg IH QID Magnesium Oxide [Magnesium] 250 mg PO BID Cyanocobalamin (Vitamin B-12) [Vitamin B12] 5,000 mcg PO DAILY Lipase/Protease/Amylase [Creon Dr 12,000 Units Capsule] 2 cap PO BID Glycopyrrolate/Formoterol Fum [Bevespi Aerosphere Inhaler] 1 inh IH BID Donepezil HCl [Aricept] 5 mg PO DAILY Roflumilast [Daliresp] 500 mcg PO DAILY Cetirizine HCl [Zyrtec] 10 mg PO DAILY PRN PRN PRN Reason: Allergies Changed Tamsulosin HCl 0.4 mg [Flomax 0.4 MG] 0.4 mg PO BID #60 cap Discontinued Amlodipine Bes/Olmesartan Med [Artem 5-40 mg Tablet] 1 each PO DAILY PANTOPRAZOLE 40 mg Tablet [Protonix 40MG Tablet] 40 mg PO QAM Prednisone 10 mg [Deltasone 10 mg] 5 mg PO DAILY Atorvastatin Calcium 10 mg PO DAILY Follow up with: JESÚS FARFAN [CONSULTING PHYSICIAN] - 1 Week WERNER NORMAN MD [Primary Care Provider] - 1 Week
[2020-01-24 18:03] VITALS: BP 134/63
[2020-01-24 19:16] VITALS: PULSE 91; O2SAT 95
== END 2020-01-24 17:45 | disposition home health service (06) | DRG 191 ==
LOC: ED 22:01 → MED SURG 01-21 00:12 → OBSVTOIN 01-22 11:18
PROVIDERS: ADMIT Internal Medicine; ATTEND Internal Medicine
DX: J44.9 Chronic obstructive pulmonary disease, unspecified (principal); J96.10 Chronic respiratory failure, unspecified whether with hypoxia or hypercapnia; N17.9 Acute kidney failure, unspecified; R00.0 Tachycardia, unspecified; I12.9 Hypertensive chronic kidney disease with stage 1 through stage 4 chronic kidney disease, or unspecified chronic kidney disease; N18.3 Chronic kidney disease, stage 3 (moderate); E87.5 Hyperkalemia; Z79.899 Other long term (current) drug therapy; Z96.641 Presence of right artificial hip joint; Z99.81 Dependence on supplemental oxygen
CPT/HCPCS: 36415; 76705; 76770; 80048; 80053; 81001; 82570; 83605; 83735; 83880; 84153; 84154; 84156; 84300; 84484; 85025; 85027; 85610; 85730; 87205; 93005; 93268; 94150; 94640; 94760; 94762; 96374; 96375; 99291; G0378; 71045; 99285; J0696; J1940; J2405; J2930; J7609; A9270-GY

== ENCOUNTER 2021-04-12 16:41 | Emergency (ER) | payer MEDICARE ==
--- NOTE | 2021-04-12 16:51 | ERPHSYRPT ---
- History of Present Illness Time Seen by Provider: 04/12/21 16:50 Source: patient, EMS Exam Limitations: no limitations Physician History: This is an 86-year-old white male has a history of COPD and is oxygen dependent with 3 L of nasal cannula oxygen therapy. Patient took 2 g of amoxicillin all at once per his dentist instructions this morning prior to his 10:00 AM dental procedure. Patient began feeling sick to his stomach and vomited once and had a diarrheal episode. He did not feel well so he laid down and when he woke up he still felt a little nauseated but then he began having some shortness of breath. He denies chest pain. He called EMS so that they could bring him to the emergency room to be evaluated. Upon arrival of EMS, they report an 89% oxygen saturation level on his 3 L. Without intervention, upon arrival to the emergency department, his oxygen saturation on 3 L is 100%. Patient states his symptoms have completely resolved. He states he feels well well at this time. Timing/Duration: today Activities at Onset: none Severity of Dyspnea-Max: mild Severity of Dyspnea-Current: none Possible Cause: occasional episodes, unknown cause (Possible reaction to 2 g of amoxicillin all at once) Associated Symptoms: No chest pain/discomfort, No heart racing, No lightheadedness, No tightness Allergies/Adverse Reactions: Tetracyclines Allergy (Verified 04/12/21 17:39) Home Medications: Albuterol 2.5 mg/0.5 ml [PROVENTIL Solution 2.5 MG/0.5 ML] 2.5 mg IH QID 02/05/19 [History] Cholecalciferol (Vitamin D3) [Vitamin D3] 125 unit PO DAILY 02/05/19 [History] Fluticasone/Salmeterol [Advair 250-50 Diskus] 1 each IH DAILY 02/05/19 [History] Multivitamin W-Minerals/Lutein [Centrum Silver Tablet] 1 each PO DAILY 02/05/19 [History] Primidone 50 MG [Mysoline 50Mg] 250 mg PO BID 02/05/19 [History] Cetirizine HCl [Zyrtec] 10 mg PO DAILY PRN PRN 01/20/20 [History] Cyanocobalamin (Vitamin B-12) [Vitamin B12] 5,000 mcg PO DAILY 01/20/20 [History] Donepezil HCl [Aricept] 5 mg PO DAILY 01/20/20 [History] Glycopyrrolate/Formoterol Fum [Bevespi Aerosphere Inhaler] 1 inh IH BID 01/20/20 [History] Lipase/Protease/Amylase [Gina Gudino 12,000 Units Capsule] 2 cap PO BID 01/20/20 [History] Magnesium Oxide [Magnesium] 250 mg PO BID 01/20/20 [History] Roflumilast [Daliresp] 500 mcg PO DAILY 01/20/20 [History] Denosumab 60 mg [Prolia 60 mg Injection] 60 mg SQ UD 04/08/20 [History] Travel Risk - International Travel Have you traveled outside of the country in past 3 weeks: No - Coronavirus Screening Are you exhibiting any of the following symptoms?: No Close contact with a COVID-19 positive Pt in past 14-21 Days: No - Review of Systems Constitutional: No Symptoms Eyes: No Symptoms Ears, Nose, & Throat: No Symptoms Respiratory: Dyspnea (Mild but now resolved) Cardiac: No Symptoms Abdominal/Gastrointestinal: Nausea (Months), Vomiting (Once), Diarrhea (Once), No Abdominal Pain Genitourinary Symptoms: No Symptoms Musculoskeletal: No Symptoms Skin: No Symptoms Neurological: No Symptoms Psychological: No Symptoms Endocrine: No Symptoms Hematologic/Lymphatic: No Symptoms Immunological/Allergic: No Symptoms All Other Systems: Reviewed and Negative - Past Medical History Pertinent Past Medical History: Yes Neurological History: No Pertinent History ENT History: Cataracts Cardiac History: Hypertension Respiratory History: COPD Endocrine Medical History: No Pertinent History Musculoskeletal History: Fractures, Osteoporosis GI Medical History: Diverticulitis, GERD History: No Pertinent History Psycho-Social History: No Pertinent History Male Reproductive Disorders: Prostate Problems Other Medical History: HX FX RIGHT HIP 11/2018 TREATED WITH THR. COPD USING PORTABLE CONCENTRATOR @ 3L PER NC DURING THE DAY AND 4L AT NIGHT,. fx left hip 2018 - Past Surgical History Past Surgical History: Yes Neuro Surgical History: No Pertinent History Cardiac: No Pertinent History Respiratory: Other Gastrointestinal: No Pertinent History Genitourinary: No Pertinent History Musculoskeletal: Orthopedic Surgery Male Surgical History: Prostate Surgery Other Surgical History: BOTH HIP FX/REPAIR, SPOT REMOVED FROM LUNG-BIOPSY SHOWED NO CANCER, PROSTATE BIOPSY, SHOULDER-BONE SPUR - Social History Smoking Status: Former smoker Exposure to second hand smoke: No Drug Use: none Patient Lives Alone: No Significant Family History: no pertinent family hx - Nursing Vital Signs Nursing Vital Signs: Initial Vital Signs Temperature 98.9 F 04/12/21 17:08 Pulse Rate 91 H 04/12/21 17:08 Respiratory Rate 16 04/12/21 17:08 Blood Pressure 179/84 04/12/21 17:08 O2 Sat by Pulse Oximetry 100 04/12/21 17:08 Pain Scale Pain Intensity 0 - Physical Exam General Appearance: no apparent distress, alert, anxiety Eye Exam: PERRL/EOMI, eyes nml inspection Ears, Nose, Throat Exam: hearing grossly normal, normal ENT inspection, normal pharynx Neck Exam: normal inspection, non-tender, supple, full range of motion Respiratory Exam: normal breath sounds, lungs clear, airway intact, No chest tenderness, No respiratory distress Cardiovascular/Chest Exam: normal heart sounds, regular rate/rhythm, normal peripheral pulses Abdominal/Gastrointestinal Exam: soft, normal bowel sounds, No tenderness Rectal Exam: not done Extremity Exam: non-tender, normal range of motion, normal inspection, normal capillary refill, no calf tenderness, no pedal edema, pelvis stable Neurologic Exam: alert, oriented x 3, cooperative, automatic glove former II-XII nml as tested, normal mood/affect, nml cerebellar function, nml station & gait, sensation nml Skin Exam: normal color, warm, dry Lymphatic Exam: No adenopathy SpO2 Interpretation: normal SpO2: 100 O2 Delivery: Nasal Cannula (3 L) - Course Nursing assessment & vital signs reviewed: Yes EKG Interpreted by Me: RATE (92), Sinus Rhythm, NORMAL AXIS, NORMAL INTERVALS, NORMAL QRS, NORMAL ST-T, Other (There is no acute ischemic changes. When compared to EKG dated 01/22/2020 there is improvement on today's EKG.) Ordered Tests: Active Orders 24 hr Category Date Time Status EKG-ER Only STAT Care 04/12/21 17:08 Active IV Insertion STAT Care 04/12/21 17:08 Active CHEST 1 VIEW (PORTABLE) Stat Exams 04/12/21 17:09 Taken AMYLASE Stat Lab 04/12/21 17:00 Completed CBC W DIFF Stat Lab 04/12/21 17:00 Completed CMP Stat Lab 04/12/21 17:00 Completed LIPASE Stat Lab 04/12/21 17:00 Completed Lactic Acid Stat Lab 04/12/21 18:07 Completed Manual Differential NC Stat Lab 04/12/21 17:00 Completed TROPONIN Q3H Lab 04/12/21 17:00 Completed TROPONIN Q3H Lab 04/12/21 20:15 Ordered TROPONIN Q3H Lab 04/12/21 23:15 Ordered TROPONIN Q3H Lab 04/13/21 02:15 Ordered TROPONIN Q3H Lab 04/13/21 05:15 Ordered Medication Summary Discontinued Medications Generic Name Dose Route Start Last Admin Trade Name Freq PRN Reason Stop Dose Admin Ondansetron HCl 4 mg 04/12/21 17:08 04/12/21 18:05 Zofran 4 Mg/2 Ml Vial IV 04/12/21 17:09 4 mg STAT ONE Administration Ondansetron HCl Confirm 04/12/21 18:01 Zofran 4 Mg/2 Ml Vial Administered 04/12/21 18:02 Dose 4 mg .ROUTE .STK-MED ONE Pantoprazole Sodium 40 mg 04/12/21 17:08 04/12/21 18:06 Protonix 40 Mg Iv IV 04/12/21 17:09 40 mg STAT ONE Administration Pantoprazole Sodium Confirm 04/12/21 18:01 Protonix 40 Mg Iv Administered 04/12/21 18:02 Dose 40 mg IV .STK-MED ONE Lab/Rad Data: Laboratory Result Diagrams 04/12/21 17:00 04/12/21 17:00 Laboratory Results 04/12/21 04/12/21 04/12/21 Range/Units 18:07 17:00 17:00 WBC (4.0-10.5) K/mm3 RBC (4.1-5.6) M/mm3 Hgb (12.5-18.0) gm/dl Hct (42-50) % MCV (78-100) fl MCH (26-32) pg MCHC (32-36) g/dl RDW (11.5-14.0) % Plt Count (150-450) K/mm3 MPV (7.5-11.0) fl Sodium 137 (137-145) mmol/L Potassium 4.4 (3.5-5.1) mmol/L Chloride 98 (98-107) mmol/L Carbon Dioxide 30 (22-30) mmol/L Anion Gap 12.8 (5-15) MEQ/L BUN 40 H (9-20) mg/dL Creatinine 1.67 H (0.66-1.25) mg/dL Estimated GFR 41.8 ML/MIN Glucose 123 H (74-106) mg/dL Lactic Acid 1.2 (0.4-2.0) Calcium 9.6 (8.4-10.2) mg/dL Total Bilirubin 0.50 (0.2-1.3) mg/dL AST 28 (17-59) U/L ALT 24 (0-50) U/L Alkaline Phosphatase 77 (38-126) U/L Troponin I 0.015 (0.000-0.034) ng/mL Serum Total Protein 7.0 (6.3-8.2) g/dL Albumin 4.2 (3.5-5.0) g/dL Amylase 261 H (30-110) U/L Lipase 739 H (23-300) U/L 04/12/21 Range/Units 17:00 WBC 13.9 H (4.0-10.5) K/mm3 RBC 4.87 (4.1-5.6) M/mm3 Hgb 15.1 (12.5-18.0) gm/dl Hct 46.6 (42-50) % MCV 95.7 (78-100) fl MCH 31.0 (26-32) pg MCHC 32.4 (32-36) g/dl RDW 14.9 H (11.5-14.0) % Plt Count 279 (150-450) K/mm3 MPV 9.3 (7.5-11.0) fl Sodium (137-145) mmol/L Potassium (3.5-5.1) mmol/L Chloride (98-107) mmol/L Carbon Dioxide (22-30) mmol/L Anion Gap (5-15) MEQ/L BUN (9-20) mg/dL Creatinine (0.66-1.25) mg/dL Estimated GFR ML/MIN Glucose (74-106) mg/dL Lactic Acid (0.4-2.0) Calcium (8.4-10.2) mg/dL Total Bilirubin (0.2-1.3) mg/dL AST (17-59) U/L ALT (0-50) U/L Alkaline Phosphatase (38-126) U/L Troponin I (0.000-0.034) ng/mL Serum Total Protein (6.3-8.2) g/dL Albumin (3.5-5.0) g/dL Amylase (30-110) U/L Lipase (23-300) U/L - Progress Progress: improved Air Movement: good Progress Note: 04/12/21 19:08 Chest x-ray shows no acute cardiopulmonary process. 04/12/21 19:35 Medical decision making: Patient states that he is doing well. He feels well. He has no abdominal pain. He has no back pain. He has no chest pain. He no longer has shortness of breath. He is hungry and thirsty. The patient has mild pancreatitis. It is unclear whether it is from the Prolia or the fact he took 2 g of amoxicillin per dentist orders this morning prior to dental cleaning. The patient's abdomen is benign. It is soft. It is nontender. I contacted the patient's primary care physician, Dr. Norman. I reviewed the patient history, physical findings, and the results of today's emergency department work-up. He feels the patient can be discharged home with instructions to be on a clear liquid diet and return to the emergency department if symptoms recur. Blood Culture(s) Obtained: No Antibiotics given: No Counseled pt/family regarding: lab results, diagnosis, need for follow-up - Departure Departure Disposition: Home Clinical Impression: Pancreatitis Condition: Stable Critical Care Time: No Referrals: WERNER NORMAN MD [Primary Care Provider] - Additional Instructions: Clear liquid diet for 24 hours. Take your medication as prescribed. Avoid fatty greasy spicy foods. Return to the emergency department if symptoms recur. Call Dr. Norman's office tomorrow to make arranges for follow-up appointment.
[2021-04-12] MEDS ORDERED: Zofran 4 MG/2 ML VIAL IV ONE (17:08)
[2021-04-12] MEDS ORDERED: PROTONIX 40 MG IV IV ONE ×2 (17:08→18:01)
[2021-04-12 17:36] LABS: Hematocrit 46.6 % (42-50); Hemoglobin 15.1 gm/dl (12.5-18.0); Mean Cell Volume 95.7 fl (78-100); Mean Corpuscular Hgb Concent. 32.4 g/dl (32-36); Mean Platelet Volume 9.3 fl (7.5-11.0); Platelet Count 279 K/mm3 (150-450); Red Blood Count 4.87 M/mm3 (4.1-5.6); Red Cell Distribution Width 14.9 % (11.5-14.0); White Blood Count 13.9 K/mm3 (4.0-10.5)
[2021-04-12 17:39] VITALS: O2SAT 100
[2021-04-12 17:52] LABS: ALBUMIN 4.2 g/dL (3.5-5.0); ANION GAP 12.8 MEQ/L (5-15); BILIRUBIN,TOTAL 0.5 mg/dL (0.2-1.3); Calcium 9.6 mg/dL (8.4-10.2); Creatinine 1 1.67 mg/dL (0.66-1.25); EST GLOMERULAR FILTRATION RATE 41.8 ML/MIN; Potassium 4.4 mmol/L (3.5-5.1)
[2021-04-12] MEDS ORDERED: Zofran 4 MG/2 ML VIAL ONE (18:01)
[2021-04-12 19:01] VITALS: BP 149/71; PULSE 96
[2021-04-12 22:09] LABS: Slide Review 1 YES
--- NOTE | 2021-04-13 08:47 | XRAY ---
Indication: Short of breath. Comparison: January 20, 2020. Portable chest again demonstrates COPD, CIPD, right base suture material, and mediastinal calcified nodes. No focal infiltrate, consolidation, or large effusion. Heart not enlarged. Bony thorax intact again with osteopenia, degenerative changes, and minimal scoliosis. Impression: Continued nonacute chest with chronic features.
== END 2021-04-12 20:40 | disposition home or self-care (01) ==
LOC: ED 16:41
DX: K85.90 Acute pancreatitis without necrosis or infection, unspecified (principal); J44.9 Chronic obstructive pulmonary disease, unspecified; Z99.81 Dependence on supplemental oxygen; Z79.899 Other long term (current) drug therapy
CPT/HCPCS: 36000; 36415; 71045; 80053; 82150; 83605; 83690; 84484; 85025; 93005; 96374; 96375; 99284; J2405

== ENCOUNTER 2022-03-23 11:21 | Day surgery (SDC) | payer MEDICARE ==
[2022-03-23] MEDS ORDERED: Depo-Medrol 40 MG/ML IM ONE (11:22)
[2022-03-23] MEDS ORDERED: Marcaine Mpf 0.5% Vial 30 Ml IJ ONE (11:22)
[2022-03-23] MEDS ORDERED: Lactated Ringers 1,000 ML IV ONE (12:29)
[2022-03-23] MEDS ORDERED: DIPRIVAN 200 MG/20 ML IV ONE (12:44)
--- NOTE | 2022-03-23 14:05 | XRAY ---
Indication: Bilateral SI joint injection. Intraoperative fluoroscopy provided for 21 seconds. 4 digital spot image submitted for interpretation demonstrates posterior needle tip projecting over the inferior left and right SI joint. Correlate with intraoperative findings/report. Incidental partially visualized right hip arthroplasty and 2 left femur head orthopedic screws.
--- NOTE | 2022-03-23 14:05 | XRAY ---
21 seconds fluoroscopy time in surgery for injections of both SI joints.
== END 2022-03-23 13:05 | disposition home or self-care (01) ==
LOC: SDC-PAIN 11:21
PROVIDERS: ATTEND Psychiatry & Neurology Pain Medicine
DX: M46.1 Sacroiliitis, not elsewhere classified (principal); Z79.899 Other long term (current) drug therapy
CPT/HCPCS: 27096; 72202; 77002; G0260; 99100; J1030; J2704

== ENCOUNTER 2022-04-20 14:51 | Day surgery (SDC) | payer MEDICARE ==
[2022-04-20] MEDS ORDERED: Depo-Medrol 40 MG/ML IM ONE (14:52)
[2022-04-20] MEDS ORDERED: XYLOCAINE-MPF 1% 5ML SDV IJ ONE (14:52)
[2022-04-20] MEDS ORDERED: Lactated Ringers 1,000 ML IV ONE (15:23)
[2022-04-20] MEDS ORDERED: Xylocaine-Mpf 2% 5 Ml Vial ONE (16:39)
[2022-04-20] MEDS ORDERED: DIPRIVAN 200 MG/20 ML IV ONE (16:40)
--- NOTE | 2022-04-20 18:02 | XRAY ---
Indication: Bilateral L4-S1 MBB. Intraoperative fluoroscopy provided for 11 seconds. Single digital spot image submitted for interpretation demonstrates posterior needle tips projecting over the expected left and right L4-S1 nerve roots. Correlate with intraoperative findings/report.
--- NOTE | 2022-04-21 11:59 | XRAY ---
11 seconds of fluoroscopy was used in surgery for a bilateral L4-S1 MBB.
== END 2022-04-20 17:05 | disposition home or self-care (01) ==
LOC: SDC-PAIN 14:51
PROVIDERS: ATTEND Psychiatry & Neurology Pain Medicine
DX: M47.816 Spondylosis without myelopathy or radiculopathy, lumbar region (principal); Z79.899 Other long term (current) drug therapy
CPT/HCPCS: 64493; 64494; 72020; 77002; J1030; J2704

== ENCOUNTER 2022-05-18 13:43 | Day surgery (SDC) | payer MEDICARE ==
[2022-05-18] MEDS ORDERED: Marcaine Mpf 0.5% Vial 30 Ml IJ ONE (13:44)
[2022-05-18] MEDS ORDERED: Depo-Medrol 40 MG/ML IM ONE (13:44)
[2022-05-18] MEDS ORDERED: DIPRIVAN 200 MG/20 ML IV ONE (15:27)
[2022-05-18] MEDS ORDERED: Lactated Ringers 1,000 ML IV ONE (15:50)
--- NOTE | 2022-05-18 19:11 | XRAY ---
Indication: Bilateral L4-S1 MBB. Intraoperative fluoroscopy provided for 8 seconds. Single digital spot image submitted for interpretation demonstrates posterior needle tips projecting over the expected left and right L4-S1 nerve roots. Correlate with intraoperative findings/report.
--- NOTE | 2022-05-18 19:36 | XRAY ---
8 seconds of fluoroscopy was used in surgery for a bilateral L4-S1 MBB.
== END 2022-05-18 15:45 | disposition home or self-care (01) ==
LOC: SDC-PAIN 13:43
PROVIDERS: ATTEND Psychiatry & Neurology Pain Medicine
DX: M47.816 Spondylosis without myelopathy or radiculopathy, lumbar region (principal); Z79.899 Other long term (current) drug therapy
CPT/HCPCS: 64493; 64494; 72020; 77002; J1030; J2704

== ENCOUNTER 2022-06-22 09:52 | Day surgery (SDC) | payer MEDICARE ==
[2022-06-22] MEDS ORDERED: BUPIVACAINE 0.5% VIAL IJ ONE (09:53)
[2022-06-22] MEDS ORDERED: Depo-Medrol 40 MG/ML IM ONE (09:53)
[2022-06-22] MEDS ORDERED: Xylocaine 1% Vial 30 ML PF IJ ONE (09:53)
[2022-06-22] MEDS ORDERED: DIPRIVAN 200 MG/20 ML IV ONE (11:25)
--- NOTE | 2022-06-22 12:33 | XRAY ---
Indication: Right L4-S1 RFA. Intraoperative fluoroscopy provided for 17 seconds. 2 digital spot images submitted for interpretation demonstrates posterior needle tips projecting over the right L4-S1 nerve roots. Correlate with intraoperative findings/report.
[2022-06-22] MEDS ORDERED: Lactated Ringers 1,000 ML IV ONE (13:33)
--- NOTE | 2022-06-22 13:35 | XRAY ---
17 seconds fluoroscopy time in surgery for right L4-S1 RFA.
== END 2022-06-22 11:40 | disposition home or self-care (01) ==
LOC: SDC-PAIN 09:52
PROVIDERS: ATTEND Psychiatry & Neurology Pain Medicine
DX: M47.816 Spondylosis without myelopathy or radiculopathy, lumbar region (principal); Z79.899 Other long term (current) drug therapy
CPT/HCPCS: 64635; 64636; 72100; 77002; 99100; J1030; J2001; J2704

== ENCOUNTER 2022-06-29 09:55 | Day surgery (SDC) | payer MEDICARE ==
[2022-06-29] MEDS ORDERED: Depo-Medrol 40 MG/ML IM ONE (09:56)
[2022-06-29] MEDS ORDERED: Xylocaine 1% Vial 30 ML PF IJ ONE (09:56)
[2022-06-29] MEDS ORDERED: BUPIVACAINE 0.5% VIAL IJ ONE (09:56)
[2022-06-29] MEDS ORDERED: Lactated Ringers 1,000 ML IV ONE (10:05)
[2022-06-29] MEDS ORDERED: DIPRIVAN 200 MG/20 ML IV ONE (10:50)
--- NOTE | 2022-06-29 11:41 | XRAY ---
Indication: Left L4-S1 RFA. Intraoperative fluoroscopy provided for 22 seconds. 3 digital spot image submitted for interpretation demonstrates posterior needle tips projecting over the expected left L4-S1 nerve roots. Correlate with intraoperative findings/report.
--- NOTE | 2022-06-29 12:32 | XRAY ---
22 seconds of fluoroscopy was used in surgery for a left L4-S1 RFA.
== END 2022-06-29 11:35 | disposition home or self-care (01) ==
LOC: SDC-PAIN 09:55
PROVIDERS: ATTEND Psychiatry & Neurology Pain Medicine
DX: M47.816 Spondylosis without myelopathy or radiculopathy, lumbar region (principal); Z79.899 Other long term (current) drug therapy
CPT/HCPCS: 64635; 64636; 72100; 77002; 99100; J1030; J2001; J2704

== ENCOUNTER 2023-03-08 10:02 | Day surgery (SDC) | payer MEDICARE ==
[2023-03-08] MEDS ORDERED: Depo-Medrol 40 MG/ML IM ONE (10:03)
[2023-03-08] MEDS ORDERED: BUPIVACAINE 0.5% VIAL IJ ONE (10:03)
[2023-03-08] MEDS ORDERED: DIPRIVAN 200 MG/20 ML IV ONE (11:31)
[2023-03-08] MEDS ORDERED: Versed 2 MG/2 ML Injection ONE (11:34)
--- NOTE | 2023-03-08 13:19 | XRAY ---
Indication: Bilateral SI joint injection. Intraoperative fluoroscopy provided for 22 seconds. 4 digital spot image submitted for interpretation demonstrates posterior needle tips projecting over the expected left and right SI joint. Correlate with intraoperative findings/report. Incidental partially visualized right hip arthroplasty.
--- NOTE | 2023-03-08 13:23 | XRAY ---
22 seconds of fluoroscopy was used in surgery for a bilateral sacroiliac joint injection.
[2023-03-08] MEDS ORDERED: Lactated Ringers 1,000 ML IV ONE (13:36)
== END 2023-03-08 12:03 | disposition home or self-care (01) ==
LOC: SDC-PAIN 10:02
PROVIDERS: ATTEND Psychiatry & Neurology Pain Medicine
DX: M46.1 Sacroiliitis, not elsewhere classified (principal); Z79.899 Other long term (current) drug therapy
CPT/HCPCS: 01992; 27096; 72202; 77002; 99100; G0260; J1030; J2250; J2704